=== PATIENT | female | born 1930 | race Caucasian/White ===

== ENCOUNTER → 2020-09-06 | Outpatient (CLI) | payer MEDICARE, BC ==
--- NOTE | 2020-09-06 10:34 | REP ---
INDICATION: ARTHRITIS LEFT FOOT. COMPARISON: None. TECHNIQUE: Multiple sequences obtained in the axial, coronal and sagittal planes. FINDINGS: Bone marrow signal is unremarkable throughout the osseous structures of the left foot. There is no evidence of bone marrow edema or occult fracture. No definite bone lesion is seen. Tendons and ligaments at the ankle appear intact. Plantar tendon is intact with no evidence of plantar fasciitis. Flexor and extensor tendons of the foot are intact with no tenosynovitis. No significant joint effusion is seen. The sinus tarsi is unremarkable in appearance. No ganglion cyst is seen. There is mild diffuse subcutaneous soft tissue edema. IMPRESSION: Essentially unremarkable MRI of the left foot. No occult fracture. <Electronically signed by Kody Dos Santos > 09/06/20 [id number]
== END ==
LOC: M RAD 09:01
PROVIDERS: ATTEND Podiatrist Foot & Ankle Surgery
DX: M19.072 Primary osteoarthritis, left ankle and foot (principal)